=== PATIENT | female | born 1965 | race Caucasian/White ===

== ENCOUNTER 2018-09-18 05:02 | Emergency (ER) | payer MEDICAID, OTHER ==
[~2018-09-18] VITALS: Ht 167.6 cm; Wt 108.9 kg
[~2018-09-18 05:02] MED LIST: ALPR0.5T7; BREX1TAB; CYCL10TA9 PO; IBUP-2185 PO; LISI10TA2; METH4TAB PO; VORT10TA; ZOLP10TA5
[2018-09-18] MEDS ORDERED: RT-ALBUTEROL/IPRATROPIUM 3 ML (DUONEB) VIAL INH ONE (05:15)
[2018-09-18] MEDS ORDERED: NS IV 1000 ML 1,000 ML IV SCH (05:15)
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
[2018-09-18 05:25] LABS: BASOPHILS % (AUTO) 1 % (0-10); EOSINOPHILS # (AUTO) 0.1 10^3/uL (0.0-0.3); EOSINOPHILS % (AUTO) 1 % (0-10); HEMATOCRIT 40 % (35-52); HEMOGLOBIN 12.8 G/DL (11.5-16.0); LYMPHOCYTES # (AUTO) 2.1 X 10^3 (1.0-4.0); LYMPHOCYTES % (AUTO) 27 % (12-44); MEAN CORPUSCULAR HEMOGLOBIN 30 PG (25-34); MEAN CORPUSCULAR HGB CONC 32 G/DL (32-36); MEAN CORPUSCULAR VOLUME 93 FL (80-99); MEAN PLATELET VOLUME 11.3 FL (7.4-10.4); MONOCYTES # (AUTO) 0.4 X 10^3 (0.0-1.0); MONOCYTES % (AUTO) 5 % (0-12); NEUTROPHILS # (AUTO) 5.2 X 10^3 (1.8-7.8); NEUTROPHILS % (AUTO) 66 % (42-75); PLATELET COUNT 192 10^3/uL (130-400); RED CELL DISTRIBUTION WIDTH 13.3 % (10.0-14.5); WHITE BLOOD COUNT 7.9 10^3/uL (4.3-11.0)
[2018-09-18 05:50] LABS: CHLORIDE 100 MMOL/L (98-107); POTASSIUM 3.4 MMOL/L (3.6-5.0); SODIUM 141 MMOL/L (135-145)
[2018-09-18 05:51] LABS: ALANINE AMINOTRANSFERASE 12 U/L (0-55); ALBUMIN 3.8 GM/DL (3.2-4.5); ALKALINE PHOSPHATASE 75 U/L (40-136); BILIRUBIN,TOTAL 0.2 MG/DL (0.1-1.0); BUN/CREATININE RATIO 20; CALCIUM 8.8 MG/DL (8.5-10.1); CARBON DIOXIDE 24 MMOL/L (21-32); CREATININE SERUM 0.87 MG/DL (0.60-1.30); GFR ESTIMATED > 60; GLUCOSE 139 MG/DL (70-105); MAGNESIUM 1.7 MG/DL (1.8-2.4); TOTAL PROTEIN 6.5 GM/DL (6.4-8.2)
[2018-09-18] MEDS ORDERED: GABAPENTIN 300 MG (05:54)
[2018-09-18] MEDS ORDERED: DULOXETINE CAP 30MG (05:54)
[2018-09-18] MEDS ORDERED: REXULTI 1 MG (05:54)
[2018-09-18] MEDS ORDERED: HCTZ (05:54)
[2018-09-18] MEDS ORDERED: TRINTELLIX 10 MG (05:54)
[2018-09-18] MEDS ORDERED: TIZANIDINE 2 MG (05:54)
[2018-09-18] MEDS ORDERED: NORTRIPTYLIN (05:54)
[2018-09-18] MEDS ORDERED: OXYCOD/APAP TAB 5-325MG (05:54)
[2018-09-18] MEDS ORDERED: ALPRAZOLAM 0.5 MG (05:54)
[2018-09-18] MEDS ORDERED: DIAZEPAM TAB 5MG (05:54)
[2018-09-18] MEDS ORDERED: LISINOPRIL (05:54)
[2018-09-18 06:01] LABS: BACTERIA,URINE MODERATE /HPF; BILIRUBIN,URINE NEGATIVE (NEGATIVE); CLARITY,URINE CLEAR; COLOR,URINE YELLOW; GLUCOSE, URINE (UA) NEGATIVE (NEGATIVE); KETONES,URINE NEGATIVE (NEGATIVE); LEUKOCYTE ESTERASE ,URINE NEGATIVE (NEGATIVE); NITRITE,URINE POSITIVE (NEGATIVE); PROTEIN,URINE NEGATIVE (NEGATIVE); UROBILINOGEN,URINE 0.2 MG/DL (NORMAL)
[2018-09-18 06:09] LABS: ABG BASE EXCESS 4.5 MMOL/L (-2.5-2.5); ABG OXYGEN SATURATION 89 % (94-100); ABG PCO2 52 MMHG (35-45); ABG PH 7.38 (7.37-7.43); ABG PO2 58 MMHG (79-93); ABG TCO2 32.4 MMOL/L (21.0-31.0); ALLENS TEST YES-POS; INSPIRED O2 ROOM AIR; VENTILATOR NO
[2018-09-18 06:10] LABS: PATIENT TEMP 97.4
[2018-09-18 06:11] LABS: AMPHETAMINE SCREEN, URINE POSITIVE (NEGATIVE); BARBITURATE SCREEN URINE NEGATIVE (NEGATIVE); BENZODIAZEPINES SCREEN URINE POSITIVE (NEGATIVE); CANNABINOID SCREEN, URINE NEGATIVE (NEGATIVE); COCAINE SCREEN URINE NEGATIVE (NEGATIVE); METHADONE STAT NEGATIVE (NEGATIVE); METHAMPHETAMINE SCREEN URINE S POSITIVE (NEGATIVE); OPIATE SCREEN URINE NEGATIVE (NEGATIVE); OXYCODONE STAT NEGATIVE (NEGATIVE); PROPOXYPHENE STAT NEGATIVE (NEGATIVE); TRICYCLIC ANTIDEPRESSANTS SCRE NEGATIVE (NEGATIVE)
[2018-09-18] MEDS ORDERED: [UNRECOGNIZED DRUG - CODE] MC (06:38)
[2018-09-18] MEDS ORDERED: ALBU2.5V4 INH (06:38)
[2018-09-18] MEDS ORDERED: RT-ALBUINH IH (06:38)
[2018-09-18] MEDS ORDERED: RX-ALBUTEROL NEB 2.5 MG/3 ML PACK #5 IH STA (06:40)
[2018-09-18] MEDS ORDERED: CEPH500T PO (06:41)
[2018-09-18] MEDS ORDERED: cefTRIAXone FOR IV USE 1,000 MG in WATER (STERILE) FOR INJECTION 10 ML IV ONE (06:45)
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
[2018-09-18 08:12] VITALS: BP 141/71
== END 2018-09-18 08:18 | disposition home or self-care (01) ==
LOC: ER FS 05:05
DX: J45.901 Unspecified asthma with (acute) exacerbation (principal); N39.0 Urinary tract infection, site not specified; F15.10 Other stimulant abuse, uncomplicated; I10 Essential (primary) hypertension; F17.210 Nicotine dependence, cigarettes, uncomplicated; Z88.0 Allergy status to penicillin; Z88.2 Allergy status to sulfonamides
CPT/HCPCS: 36415; 71045; 80053; 80306; 81000; 82805; 83605; 83735; 85025; 87040; 87077; 87088; 87186; 93005; 93041

== ENCOUNTER → 2018-10-16 | Emergency (ER) | payer MEDICAID ==
[~2018-10-16] VITALS: Ht 172.7 cm; Wt 104.3 kg
[~2018-10-16] MED LIST changes: +ALBU2.5V4 INH; +ALPRAZOLAM 0.5 MG; +AMIODARONE 450 MG/9 ML (CORDARONE) VIAL IV ONE; +CEPH500T PO; +DIAZEPAM TAB 5MG; +DULOXETINE CAP 30MG; +EPINEPHrine 0.1 MG/ML 10 ML (HOSPIRA) SYR IJ ONE; +ETOMIDATE IV SOLN 20 MG/10 ML VIAL IV ONE; +GABAPENTIN 300 MG; +HCTZ; +LISINOPRIL; +LORazepam INJ 2 MG/ML (ATIVAN) VIAL IVP ONE; +MIDAZOLAM 5 MG/5 ML (VERSED) VIAL IJ ONE; +NORTRIPTYLIN; +NS (IVPB) 250 ML ONE; +NS IV 1000 ML 1,000 ML ONE; +OXYCOD/APAP TAB 5-325MG; +REXULTI 1 MG; +ROCURONIUM 10 MG/ML 5 ML SYRINGE IV ONE; +RT-ALBUINH IH; +RT-ALBUTEROL/IPRATROPIUM 3 ML (DUONEB) VIAL INH ONE; +RT-ALBUTEROL/IPRATROPIUM 3 ML (DUONEB) VIAL ONE; +TIZANIDINE 2 MG; +TRINTELLIX 10 MG; +[UNRECOGNIZED DRUG - CODE] MC; +cefTRIAXone FOR IV USE 1,000 MG in WATER (STERILE) FOR INJECTION 10 ML IV ONE; +methylPREDNISolone 125 MG (Solu-MEDROL) VIAL IVP ONE
--- NOTE | 2018-10-16 19:35 | NUR ---
patient arrives to room via EMS, currently on bipap. EMS states patient had been very combative and required them to give ketamine to the patient in route. patient appears to be confused and impedes careworkers attempts to assist her with her respiratory distress.
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
--- OUTSIDE RECORDS SUMMARY | 2018-10-16 19:43 | XMS REPORT | Continuity of Care Document ---
Author Organization Unknown Address Unknown Allergies There is no data. Medications There is no data. Problems There is no data. Procedures There is no data. Results There is no data. Encounters ACCT No. Visit Date/Time Discharge Status Pt. Type Provider Facility Loc./Unit Complaint [id number] 09/24/2018 10:00:00 09/24/2018 23:59:59 [facility]
[2018-10-16 19:53] LABS: HEMATOCRIT 41 % (35-52); HEMOGLOBIN 12.8 G/DL (11.5-16.0); MEAN CORPUSCULAR HEMOGLOBIN 30 PG (25-34); MEAN CORPUSCULAR HGB CONC 32 G/DL (32-36); MEAN CORPUSCULAR VOLUME 94 FL (80-99); PLATELET COUNT 288 10^3/uL (130-400); RED CELL DISTRIBUTION WIDTH 14.3 % (10.0-14.5); WHITE BLOOD COUNT 10.9 10^3/uL (4.3-11.0)
[2018-10-16 19:54] LABS: BASOPHILS # (AUTO) 0.1 10^3/uL (0.0-0.1); BASOPHILS % (AUTO) 1 % (0-10); EOSINOPHILS # (AUTO) 0.1 10^3/uL (0.0-0.3); EOSINOPHILS % (AUTO) 1 % (0-10); LYMPHOCYTES # (AUTO) 4.4 X 10^3 (1.0-4.0); LYMPHOCYTES % (AUTO) 41 % (12-44); MEAN PLATELET VOLUME 10.9 FL (7.4-10.4); MONOCYTES # (AUTO) 0.6 X 10^3 (0.0-1.0); MONOCYTES % (AUTO) 6 % (0-12); NEUTROPHILS # (AUTO) 5.6 X 10^3 (1.8-7.8); NEUTROPHILS % (AUTO) 51 % (42-75)
[2018-10-16] MEDS: NS IV 1000 ML 1,000 ML IV SCH ×2 (20:00→21:00)
--- NOTE | 2018-10-16 20:00 | ED Respiratory ---
General Stated Complaint: RESPIRATORY Source: EMS History of Present Illness Date Seen by Provider: October 16, 2018 Time Seen by Provider: 19:35 Initial Comments 52-year-old female presenting by EMS from home. She reportedly had been having difficulty breathing and when first responders arrived she was given some supplemental oxygen but still having restaurant distress. When EMS arrived they had established an IV and were planning on admitting the patient that she had been thrashing and pulled her IV out. They were able to establish another IV and give her some ketamine as well as get her on BiPAP. This had started to help with her breathing so they had held off on intubation. They said arrived in the emergency department by the point and her oxygen saturation had improved from the initial 70% with cyanosis that she had on room air. She was hypertensive and tachycardic. She was still in respiratory distress but was improved with the BiPAP. She was diminished throughout all lung henao. She had presented approximately a month ago on September 18 with similar complaints and at that time had methamphetamines in her system but had turned around with Solu- Medrol and DuoNeb breathing treatments. Pt speaking in 2-3 word sentences. She was still agitated and having trouble breathing and unable to give any history. Allergies and Home Medications Allergies Coded Allergies: Penicillins (Verified Allergy, Unknown, 09/18/18) Sulfa (Sulfonamide Antibiotics) (Verified Allergy, Unknown, 09/18/18) oxycodone (Verified Allergy, Unknown, 09/19/18) Home Medications Albuterol Sulfate 2.5 Mg/3 Ml Vial.neb, 2.5 MG INH Q4H PRN for WHEEZING Prescribed by: JANICE WHITING on 09/18/18 0638 Albuterol Sulfate 1 Puff Puff, 2 PUFF IH Q4H PRN for WHEEZING 1 PUFF = 90 MCG Prescribed by: JANICE WHITING on 09/18/18 0638 Cephalexin 500 Mg Tablet, 500 MG PO BID Prescribed by: JANICE WHITING on 09/18/18 0641 Cyclobenzaprine HCl 10 Mg Tablet, 10 MG PO Q8H Prescribed by: AMILCAR MCKENNA on 08/07/18 1035 Ibuprofen 200 Mg Capsule, 200 MG PO Q6H PRN for prn, (Reported) Methylprednisolone 4 Mg Tab.ds.pk, 4 MG PO UD PER DOSE PACK INSTRUCTIONS Prescribed by: AMILCAR MCKENNA on 08/07/18 1035 Patient Home Medication List Home Medication List Reviewed: Yes Review of Systems Review of Systems Constitutional: see HPI Respiratory: see HPI unable to obtain full ROS due to patient respiratory distress and decreased mental status. She is unable to provide history and EMS was only able to give limited history as they were not on scene long due to critical nature of the patient. Past Rawpznp-Vaetck-Lgepqz Hx Past Med/Social Hx: Reviewed Nursing Past Med/Soc Hx Patient Social History Type Used: Cigarettes 2nd Hand Smoke Exposure: No Recent Foreign Travel: No Contact w/Someone Who Travel: No Recent Hopitalizations: No Seasonal Allergies Seasonal Allergies: No Past Medical History Surgeries: No Respiratory: Yes Asthma Cardiac: Yes Hypertension Neurological: No Genitourinary: No Gastrointestinal: No Musculoskeletal: Yes (Chronic hip pain) Chronic Back Pain Endocrine: No HEENT: No Cancer: No Psychosocial: Yes Sleep Difficulties, Anxiety, Suicide Attempts, Depression Integumentary: No Blood Disorders: No Adverse Reaction/Blood Tranf: No Physical Exam Vital Signs - First Documented 10/16/18 19:35 Temp 97.8 Pulse 134 Resp 20 B/P (MAP) 135/117 (123) Pulse Ox 100 O2 Delivery NIV/CPAP O2 Flow Rate 50.00 FiO2 98 Capillary Refill : Height: 5'6.00" Weight: 240lbs. oz. 108.518227oc; BMI Method:Stated General Appearance: severe distress, obese HEENT: PERRL/EOMI Neck: full range of motion, supple Respiratory: respiratory distress (pt in with respiratory distress and working hard to breath even with BiPap), decreased breath sounds (diminished breath sounds in all henao), accessory muscle use, rhonchi; No stridor, No wheezing Cardiovascular: normal peripheral pulses, no JVD, no murmur, tachycardia Gastrointestinal: non tender, soft, no pulsatile mass, abnormal bowel sounds ( hyperactive), distended; No guarding, No rebound Extremities: normal range of motion (moving all extremities), no pedal edema Neurologic/Psychiatric: alert (pt is alert but not answering any orientation questions), oriented x 3 (oriented to self and family. ); No facial droop Skin: No cyanosis; cool; No diaphoresis, No jaundice, No mottled; pallor Focused Exam Lactate Level 10/16/18 20:40: Lactic Acid Level 1.67 Lactic Acid Level Laboratory Tests Test 10/16/18 20:40 Lactic Acid Level 1.67 MMOL/L (0.50-2.00) Procedures/Interventions Reason for Intubation: respiratory distress and failed Bipap Date of ETT Placement: October 16, 2018 Time of ETT Placement: 23:10 Intubation Method: orotracheal Tube Size: 7 Medications: Etomidate, Rocuronium, Versed Positive End Tide CO2: Yes Breath Sounds after Intubation: bilateral-equal Intubation Complications: oral-unsuccessful attempt, vomited, apparent aspiration, O2 saturation decreased Post Intubation Xray: No Due to the patient having continued acidosis on her blood gases as well as mental status changes and not improving with the BiPAP she had several indications requiring intubation. I did speak with the petroleum refinery laborer at [facility] since no beds were available at [facility]. Dr. Patel accepted the patient at 2228. After obtaining acceptance of the patient I then went and again updated the family and proceeded with arranging for intubation. After having all the supplies and suction set up she was given premedication of Versed and etomidate. She was getting preoxygenation with bag valve mask ventilation. However she was continuing to have difficulty with oxygenation and as she was relaxing with the medications I did proceed attempt elevation on her. Using a Mac 4 blade and a 7.5 ET tube however she had already had emesis in her posterior pharynx and airway that was suctioned immediately and it was noted that she was gagging so she was given 50 mg of Rocuronium for paralytic and was attempted further BVM ventilation. This was not helping her improve her oxygenation so she was given an additional 100 mg of Rocuronium and 5 mg of Versed before a second attempt at intubation was made. She had more emesis in her pharynx and airway that was suctioned out and I could visualize the cords and the 7.5 ET tube was placed but when listening for breath sounds and looking for signs to see if the tube was in proper position she was having emesis in the tube and was not having breath sounds present in her lung henao. She was having desaturation on her oxygenation and so she was changed over to bag valve mask again. That she was still not having improved oxygenation and I felt that it was more important to try again with another attempt at intubation so a 7.0 ET tube was attempted. I again couldn't visualize the cords but was unable to get the ET tube to make the curve anteriorly to pass through her cords. At this point she was bradycardic and hypoxic so further attempts were stopped and she was changed to BVM for ventilation while chest compressions were started. EMS was brought in at that point so that another provider could attempt an airway on the patient. She was also given epinephrine to help with her bradycardia at this point. at 2310 she had 7.0 ET tube placed by the electron microprobe operator at 21 cm at the gums. The tube placement was confirmed by ET CO2 monitor and listening for breath sounds in lung henao. She was also attached to an End Tidal CO2 monitor. CPR: 2315 patient was noted to go into ventricular fibrillation on the monitor. She had no pulse that could be palpated. Compressions were started while the monitor was charged to be able to deliver a shock. She was given a shock of 200 J. At 2316 she was given a milligram of epinephrine. Chest compressions were continued. 2320 a rhythm check was performed and she was still in ventricular fibrillation and so an additional shock was delivered with compressions resumed after that. At 2321 and additional dose of epinephrine was given. Due to her refractory A. fib amiodarone was also dosed. There is only 150 mg in the medicine supply from the code cart so she was given that as a bolus dose at 2323. 2327 additional 1 mg of epinephrine was given. Compressions have been continued throughout this. Rhythm check at 2333 is PEA so PATRICIA compression device placed to continue compressions. 2335 additional 1 mg Epinephrine given as I went to speak to the daughter about the patient. She made the comment that her mother had told her "To just let me go". She was still wanting to have us continue with out efforts for now with her mother. 2338 amiodarone drip started. 2340 additional 1 mg of epinephrine given while continued compressions with the Patricia device. 2345 pt on ventilator instead of Bagging her through the ET tube. 2347 on rhythm check she was still in PEA and had no spontaneous respirations, Fixed and dilated pupils. I went and spoke with her daughter again and updated her stating that I felt that our efforts were futile at this point and that we were not going to be able to get her heart beating on its own or lungs breathing on their own again. The daughter again stated that her mother had told her she had wanted to be let go and not to suffer anymore. Will withdraw care and have daughter come into the room once we have things cleaned up. 2358 Compressions and Ventilator were stopped. 0004 it was noted that she did have a weak pulse due to effect of the medicines but no respiratory effort. She was temporarily placed on ventilator again to review her case with the staff caring for her and it was the consensus that this was all medicine effect since she still was not breathing on her own and not responsive. Amiodarone drip and ventilator were stopped. She had no spontaneous respirations and her heart rate slowed to asystole when she was removed from the amiodarone drip. She was pronounced at 0019. Progress/Results/Core Measures Suspected Sepsis SIRS Temperature: Pulse: Respiratory Rate: Laboratory Tests 10/16/18 19:44: White Blood Count 10.9 Blood Pressure / Mean: 10/16/18 20:40: Lactic Acid Level 1.67 Laboratory Tests 10/16/18 19:44: Creatinine 1.01, Platelet Count 288, Total Bilirubin 0.2 Results/Orders Lab Results Laboratory Tests Test 10/16/18 19:44 10/16/18 20:04 10/16/18 20:40 10/16/18 20:56 Range/Units White Blood Count 10.9 4.3-11.0 10^3/uL Red Blood Count 4.29 L 4.35-5.85 10^6/uL Hemoglobin 12.8 11.5-16.0 G/DL Hematocrit 41 35-52 % Mean Corpuscular Volume 94 80-99 FL Mean Corpuscular Hemoglobin 30 25-34 PG Mean Corpuscular Hemoglobin Concent 32 32-36 G/DL Red Cell Distribution Width 14.3 10.0-14.5 % Platelet Count 288 130-400 10^3/uL Mean Platelet Volume 10.9 H 7.4-10.4 FL Neutrophils (%) (Auto) 51 42-75 % Lymphocytes (%) (Auto) 41 12-44 % Monocytes (%) (Auto) 6 0-12 % Eosinophils (%) (Auto) 1 0-10 % Basophils (%) (Auto) 1 0-10 % Neutrophils # (Auto) 5.6 1.8-7.8 X 10^3 Lymphocytes # (Auto) 4.4 H 1.0-4.0 X 10^3 Monocytes # (Auto) 0.6 0.0-1.0 X 10^3 Eosinophils # (Auto) 0.1 0.0-0.3 10^3/uL Basophils # (Auto) 0.1 0.0-0.1 10^3/uL Sodium Level 143 135-145 MMOL/L Potassium Level 4.1 3.6-5.0 MMOL/L Chloride Level 103 98-107 MMOL/L Carbon Dioxide Level 28 21-32 MMOL/L Anion Gap 12 5-14 MMOL/L Blood Urea Nitrogen 12 7-18 MG/DL Creatinine 1.01 0.60-1.30 MG/DL Estimat Glomerular Filtration Rate 58 BUN/Creatinine Ratio 12 Glucose Level 162 H 70-105 MG/DL Calcium Level 8.5 8.5-10.1 MG/DL Corrected Calcium 8.7 8.5-10.1 MG/DL Magnesium Level 1.9 1.8-2.4 MG/DL Total Bilirubin 0.2 0.1-1.0 MG/DL Aspartate Amino Transf (AST/SGOT) 26 5-34 U/L Alanine Aminotransferase (ALT/SGPT) 17 0-55 U/L Alkaline Phosphatase 73 40-136 U/L Total Protein 6.7 6.4-8.2 GM/DL Albumin 3.8 3.2-4.5 GM/DL Serum Test, Qualitative NEGATIVE NEGATIVE Blood Gas Puncture Site RT RAD Blood Gas Patient Temperature 98.4 Arterial Blood pH 7.26 *L 7.37-7.43 Arterial Blood Partial Pressure CO2 63 H 35-45 MMHG Arterial Blood Partial Pressure O2 110 H 79-93 MMHG Arterial Blood HCO3 28 H 23-27 MMOL/L Arterial Blood Total CO2 30.2 21.0-31.0 MMOL/L Arterial Blood Oxygen Saturation 98 94-100 % Arterial Blood Base Excess 0.0 -2.5-2.5 MMOL/L Feliciano Test YES-POS Blood Gas Ventilator Setting NO Blood Gas Inspired Oxygen 25% Lactic Acid Level 1.67 0.50-2.00 MMOL/L Urine Color YELLOW Urine Clarity CLOUDY Urine pH 5.5 5-9 Urine Specific [place] >1.030 1.016-1.022 Urine Protein 2+ H NEGATIVE Urine Glucose (UA) NEGATIVE NEGATIVE Urine Ketones NEGATIVE NEGATIVE Urine Nitrite NEGATIVE NEGATIVE Urine Bilirubin NEGATIVE NEGATIVE Urine Urobilinogen 0.2 NORMAL MG/DL Urine Leukocyte Esterase NEGATIVE NEGATIVE Urine RBC (Auto) TRACE H NEGATIVE Urine RBC 2-5 H /HPF Urine WBC NONE /HPF Urine Squamous Epithelial Cells 5-10 /HPF Urine Crystals PRESENT H /LPF Urine Amorphous Sediment MOD JAZMIN URATES H /LPF Urine Bacteria NONE /HPF Urine Casts PRESENT /LPF Urine Granular Casts 5-10 H /LPF Urine Mucus NEGATIVE /LPF Urine Culture Indicated NO Urine Opiates Screen NEGATIVE NEGATIVE Urine Oxycodone Screen NEGATIVE NEGATIVE Urine Methadone Screen NEGATIVE NEGATIVE Urine Propoxyphene Screen NEGATIVE NEGATIVE Urine Barbiturates Screen NEGATIVE NEGATIVE Ur Tricyclic Antidepressants Screen NEGATIVE NEGATIVE Urine Phencyclidine Screen NEGATIVE NEGATIVE Urine Amphetamines Screen POSITIVE H NEGATIVE Urine Methamphetamines Screen POSITIVE H NEGATIVE Urine Benzodiazepines Screen POSITIVE H NEGATIVE Urine Cocaine Screen NEGATIVE NEGATIVE Urine Cannabinoids Screen NEGATIVE NEGATIVE Test 10/16/18 21:25 Range/Units Blood Gas Puncture Site RT RAD Blood Gas Patient Temperature 97.3 Arterial Blood pH 7.24 *L 7.37-7.43 Arterial Blood Partial Pressure CO2 61 H 35-45 MMHG Arterial Blood Partial Pressure O2 81 79-93 MMHG Arterial Blood HCO3 26 23-27 MMOL/L Arterial Blood Total CO2 28.0 21.0-31.0 MMOL/L Arterial Blood Oxygen Saturation 94 94-100 % Arterial Blood Base Excess -2.3 -2.5-2.5 MMOL/L Feliciano Test NA Blood Gas Ventilator Setting NO Blood Gas Inspired Oxygen 10L My Orders Orders - NIXON JANG MD Cbc With Automated Diff (10/16/18 19:42) Comprehensive Metabolic Panel (10/16/18 19:42) Chest 1 View Ap/Pa Only (10/16/18 19:42) Albuterol/Ipra Inhalation Soln (Duoneb I (10/16/18 19:45) Magnesium (10/16/18 19:42) Ekg Tracing (10/16/18 19:42) O2 (10/16/18 19:42) Ed Iv/Invasive Line Start (10/16/18 19:42) Monitor-Rhythm Ecg Trace Only (10/16/18 19:42) Svn Small Volume Nebulizer (10/16/18 19:42) Lorazepam Injection (Ativan Injection) (10/16/18 19:45) Albuterol/Ipra Inhalation Soln (Duoneb I (10/16/18 19:41) Methylprednisolone Sod Succ (Solu-Medrol (10/16/18 20:00) Ns Iv 1000 Ml (Sodium Chloride 0.9%) (10/16/18 19:56) Ns Iv 1000 Ml (Sodium Chloride 0.9%) (10/16/18 20:00) Arterial Blood Gas (10/16/18 20:00) Bipap (Bilevel) Set Up (10/16/18 20:00) Drug Screen Stat (Urine) (10/16/18 20:02) Ua Culture If Indicated (10/16/18 20:02) Hcg,Qualitative Serum (10/16/18 20:02) Guerra Cath (10/16/18 20:27) Blood Culture (10/16/18 20:30) Lactic Acid Analyzer (10/16/18 20:30) Ceftriaxone For Iv Use (Rocephin For I (10/16/18 20:45) Arterial Blood Gas (10/16/18 20:58) Lorazepam Injection (Ativan Injection) (10/16/18 21:15) Amiodarone Injection (Cordarone Injectio (10/16/18 23:21) Ns (Ivpb) (Sodium Chloride 0.9%) (10/16/18 23:25) Albuterol/Ipra Inhalation Soln (Duoneb I (10/16/18 19:37) Epinephrine Emergency Syringe (Epinephr (10/16/18 19:40) Etomidate Injection (Amidate Injection) (10/16/18 19:40) Midazolam Injection (Versed Injection) (10/16/18 19:40) Rocuronium 5 Ml Syringe (Rocuronium 5 Ml (10/16/18 19:40) Medications Given in ED Vital Signs/I&O 10/16/18 10/16/18 10/16/18 10/17/18 19:35 19:35 20:40 00:19 Temp 97.8 97.8 Pulse 134 134 0 Resp 20 20 0 B/P (MAP) 135/117 (123) 135/117 0/0 (0) Pulse Ox 100 100 0 O2 Delivery NIV/CPAP NIV Bilevel O2 Flow Rate 50.00 FiO2 98 Capillary Refill : Progress Note #1: Time: 19:35 Progress Note Will switch patient over to our BiPAP. Will try a dose of Ativan along with Solu -Medrol and a DuoNeb treatment. If she is not improving as she had when she was present a month ago with similar symptoms she may need to intubate the patient. Will see what her labs, CXR and blood gas are showing as well. Progress Note #2: Time: 20:15 Progress Note Labs show WBC is 10.9 so not elevated. Her Ativan was helping her to be more calm and cooperative so the BiPap was able to work and she was tolerating it better. She had blood gas showing acidosis with pH of 7.26, pO2 115, pCO2 63. CXR was showing right perihilar infiltrate. These are new from last visit a month ago as she was having a normal pH then and no infiltrate on CXR. will give some time on the BiPap to see how that might help to blow off some of ther CO2 and if it will help her mentation as she is better oxygenated. A Guerra catheter was placed to obtain urine and monitor urine output as she also seemed dehydrated with the tachycardia and presuming that she would be positive for methamphetamines as she was a month ago, since this was an almost identical presentation. Progress Note #3: Time: 21:45 Progress Note Repeat Blood gas after being on BiPap for an hour shows that she is still acidotic and has not improved on her like gas. Will plan on elevation of the patient. Had RAD advise the patient and family that that was the plan. In the meantime [facility] to [facility] level bed. I was told that [facility] did not have any ICU beds available and that they were full. Progress Note #4: Time: 22:28 Progress Note I spoke with Dr. Patel at [facility] for the petroleum refinery laborer service layer and he accepted the patient for transfer. He will work on obtaining a bed while I worked on securing the patient's airway with intubation. Progress Note #5: Time: 00:19 Progress Note Please refer to critical care and procedures area for more detail of the patient 's visit. She was pronounced at 00 19. ECG Initial ECG Impression Date: October 16, 2018 Initial ECG Impression Time: 19:43 Initial ECG Rate: 139 Initial ECG Rhythm: S.Tach Initial ECG Comparisson: Changed Comment Sinus tachycardia with heart rate of 139 bpm. ME interval 132 ms. She has a QT interval of 295 ms with a QT corrected interval of 449 ms. She has no acute ST elevation. She has some artifact from movement and respiratory distress. Diagnostic Imaging Diagonstic Imaging: Xray Plain Films/CT/US/NM/MRI: chest Comments [facility], [facility]. [place], [place] NAME: DARA WILLIAMSON [facility] REC#: [id number] PT STATUS: REG ER : 1965 PHYSICIAN: NIXON JANG MD ADMIT DATE: 10/16/18/ER FS Draft Date of Exam:10/16/18 CHEST 1 VIEW AP/PA ONLY INDICATION: Respiratory distress TECHNIQUE: Upright AP portable view of the chest is obtained. COMPARISON is made to study of 09/18/2018. FINDINGS: There has been an increase in the right perihilar density. No pneumothorax is identified. There is no other evidence of consolidation. Metallic foreign bodies are again seen throughout the chest and neck. IMPRESSION: Increasing right perihilar density which may represent pneumonitis or atypical pneumonia. Radiographic followup would be useful. Dictated on workstation # [id number] Dict: 10/16/182010 Trans: 10/16/182014 [facility] [id number] Interpreted by: SELWYN ORDONEZ MD Electronically signed by: Reviewed: Reviewed by Me (and radiology reading) Critical Care Note Critical Care Total Time (minutes) 115 minutes Date of : October 17, 2018 Time of : 00:19 Progress 115 minutes of critical care time was spent on the patient. Time was spent separate from separately billable procedures. Time spent obtaining history from patient's chart and family, reviewing history in the chart, ordering tests and reviewing results, ordering interventions and reviewing response, discussion with consultants, documentation in the chart Departure Impression Primary Impression: Cardiac arrest Additional Impressions: Pneumonia involving right lung Qualified Codes: J18.9 - Pneumonia, unspecified organism Methamphetamine abuse COPD with acute exacerbation Hypoxia Dehydration Disposition: 20 Condition: Departure-Patient Inst. Referrals: JESICA MADRID APRN (PCP) Primary Care Physician ALEXANDER PINTO MD (Family) Primary Care Physician NIXON JANG MD October 16, 2018 20:00
[2018-10-16 20:15] LABS: ABG PCO2 63 MMHG (35-45); ABG PH 7.26 (7.37-7.43); ABG PO2 110 MMHG (79-93); ABG TCO2 30.2 MMOL/L (21.0-31.0)
--- NOTE | 2018-10-16 20:15 | NUR ---
ELIZABETH PH 7.26!! reported to Dr Olivas
[2018-10-16 20:16] LABS: ABG OXYGEN SATURATION 98 % (94-100); ALLENS TEST YES-POS; INSPIRED O2 25%; PATIENT TEMP 98.4; VENTILATOR NO
--- NOTE | 2018-10-16 20:16 | Diagnostic Imaging Report ---
INDICATION: Respiratory distress TECHNIQUE: Upright AP portable view of the chest is obtained. COMPARISON is made to study of 09/18/2018. FINDINGS: There has been an increase in the right perihilar density. No pneumothorax is identified. There is no other evidence of consolidation. Metallic foreign bodies are again seen throughout the chest and neck. IMPRESSION: Increasing right perihilar density which may represent pneumonitis or atypical pneumonia. Radiographic followup would be useful. Dictated by: Dictated on workstation # [id number]
[2018-10-16 20:29] LABS: BILIRUBIN,TOTAL 0.2 MG/DL (0.1-1.0); CALCIUM 8.5 MG/DL (8.5-10.1); CREATININE SERUM 1.01 MG/DL (0.60-1.30); MAGNESIUM 1.9 MG/DL (1.8-2.4); POTASSIUM 4.1 MMOL/L (3.6-5.0)
[2018-10-16 20:30] LABS: ALBUMIN 3.8 GM/DL (3.2-4.5); TOTAL PROTEIN 6.7 GM/DL (6.4-8.2)
[2018-10-16 21:10] LABS: CLARITY,URINE CLOUDY; COLOR,URINE YELLOW; GLUCOSE, URINE (UA) NEGATIVE (NEGATIVE); PH,URINE 5.5 (5-9); PROTEIN,URINE 2+ (NEGATIVE)
[2018-10-16 21:11] LABS: AMORPHOUS SEDIMENT,UR MOD AMOR URATES /LPF; BILIRUBIN,URINE NEGATIVE (NEGATIVE); KETONES,URINE NEGATIVE (NEGATIVE); LEUKOCYTE ESTERASE ,URINE NEGATIVE (NEGATIVE); NITRITE,URINE NEGATIVE (NEGATIVE); UROBILINOGEN,URINE 0.2 MG/DL (NORMAL)
[2018-10-16 21:21] LABS: AMPHETAMINE SCREEN, URINE POSITIVE (NEGATIVE); BARBITURATE SCREEN URINE NEGATIVE (NEGATIVE); BENZODIAZEPINES SCREEN URINE POSITIVE (NEGATIVE); CANNABINOID SCREEN, URINE NEGATIVE (NEGATIVE); COCAINE SCREEN URINE NEGATIVE (NEGATIVE); METHADONE STAT NEGATIVE (NEGATIVE); METHAMPHETAMINE SCREEN URINE S POSITIVE (NEGATIVE); OPIATE SCREEN URINE NEGATIVE (NEGATIVE); OXYCODONE STAT NEGATIVE (NEGATIVE); PROPOXYPHENE STAT NEGATIVE (NEGATIVE); TRICYCLIC ANTIDEPRESSANTS SCRE NEGATIVE (NEGATIVE)
--- NOTE | 2018-10-16 21:41 | NUR ---
blood gas PH 7.24 !! reported to Dr Olivas
[2018-10-16 21:43] LABS: ABG PH 7.24 (7.37-7.43); INSPIRED O2 10L; PATIENT TEMP 97.3; VENTILATOR NO
[2018-10-16 21:44] LABS: ABG BASE EXCESS -2.3 MMOL/L (-2.5-2.5); ABG OXYGEN SATURATION 94 % (94-100); ABG PCO2 61 MMHG (35-45); ABG PO2 81 MMHG (79-93)
--- NOTE | 2018-10-16 22:37 | NUR ---
in room to assist Dr Olivas with intubation, Nevin RN at bedside as well. gave per verbal order 2236 versed 5 mg 2237 Etomidate 20 mg 2242 Rocuronium 1mL 2244 Rocutonium 2mL 2246 Versed 5mg 2255 difficult intubation, o2 saturations dropping, bradycardia noted, CPR started 2304 epi 1mg, o2 78% heart rate 87 2310 bp 132/109 2312 intubation completed 21 cm at gums, bagging patient with etco2 device in place. 2313 bp 138/99 2315 V-fib, 200 tawanda at this time. CPR continues 2316 epi 1mg, heart rate 158, O2 94% 2320 V-fib shock 200 tawanda CPR continues 2321 epi 1mg, heart rate 117 O2 81% 2323 150mg of Amiodarone 2327 epi 1mg, HR 144, O2 91% BP 136/[address] for compressions [address] Olivas out to talk to Daughter. 2338 Amiodarone drip started per protocol 2340 epi 1mg, HR 136, O2 89% [address] Olivas out of room to update family 2358 Dr cris order to stop compressions and vent per family wishes family. CPR stopped, heart rate 187, respirations 15 0005 heart rate 93, respirations 15 0010 heart rate 89, respirations 12 0015 heart rate 85, respirations 0 0020 heart rate 68, respirations 0 0021 heart rate 0, respirations 0 clock in room indicated 0019 as Official time of called by Dr Olivas [place] called at 0030 reference # [id number] [place] Sales Person called and briefed on patient history and conditions of expiration- states No case. 0112 saline placed in eyes, pastoral care offered and declined. [place], patient daughter and POA departs for home. 0117 Cooling pack placed on upper torso of patient and ice placed over pt eyes 0123 [place] contacted with updated information for no special needs teacher case and was told they would try and contact the patients daughter and call me back. 0351 return call from [place] told this RN Neither tissue or eye bank eligable, body may be released. 0400 attempted to call Hortensia to find out which home she wanted patient taken to however no answer, left message. Addendum: 10/17/18 at 0731 by [id number] NG tube placed at [id number]
[2018-10-17 00:19] VITALS: BP 0/0
--- NOTE | 2018-10-17 04:00 | NUR ---
4 saline lock devices removed intubation tube removed harper catheter removed NG tube removed by Nevin KIRKPATRICK
--- NOTE | 2018-10-17 08:45 | NUR ---
BODY RELEASED TO [facility] AT THIS TIME. 0840.
== END | disposition expired ==
LOC: EDUNIT# 19:35 → ER FS 19:39
DX: I46.9 Cardiac arrest, cause unspecified (principal); J18.9 Pneumonia, unspecified organism; F15.10 Other stimulant abuse, uncomplicated; J44.1 Chronic obstructive pulmonary disease with (acute) exacerbation; I10 Essential (primary) hypertension; F41.9 Anxiety disorder, unspecified; F32.9 Major depressive disorder, single episode, unspecified; E86.0 Dehydration; Z88.0 Allergy status to penicillin; Z91.5 Personal history of self-harm; Z88.2 Allergy status to sulfonamides; Z88.5 Allergy status to narcotic agent; Z79.52 Long term (current) use of systemic steroids
CPT/HCPCS: 31500; 36415; 51702; 71045; 80053; 80306; 81000; 82805; 83605; 83735; 84703; 85025; 87040; 93041